=== PATIENT | female | born 1995 | race African-American/Black ===

== ENCOUNTER → 2018-05-09 07:25 | Day surgery (SDC) | payer MEDICAID ==
[2018-05-08 12:11] LABS: BASOPHILS 0.6 % (0-2); EOSINOPHILS 3.9 % (0-7); HEMATOCRIT 35.9 % (36.0-48.0); HEMOGLOBIN 12.1 g/dL (12-16); IMMATURE GRANULOCYTES 0.1 % (0-5); LYMPHOCYTES 30.6 % (15-50); MCH 29.1 pg (26.0-34.0); MCHC 33.7 g/dL (31.0-37.0); MCV 86.3 fL (80.0-100.0); MEAN PLATELET VOLUME 9.9 fL (7.4-10.4); NEUTROPHILS 57.8 % (40-80); PLATELET COUNT 304 10x3/uL (130-400); RBC 4.16 10x6/uL (4.00-5.40); RDW 13.2 % (11.5-14.5); WBC 7.2 10x3/uL (4.8-10.8)
[~2018-05-09] VITALS: Ht 160 cm; Wt 88.5 kg
[~2018-05-09 07:25] MED LIST: ADIPEX-P37.5 M1 PO; DOXEPIN HCL75 MG PO; REMERON15 MG PO; VALIUM5 MG PO; XANAX XR 1 MG TA1 MG PO; XANAX1 MG PO; ZOLOFT100 MG PO
[2018-05-09 08:19] VITALS: BP 118/70; Ht 160 cm; Wt 88.5 kg
[2018-05-09 08:40] LABS: HCG URINE NEGATIVE (NEGATIVE)
== END | disposition home or self-care (01) ==
LOC: D.OPS 07:25 → D.PAN 08:00 → D.OPS 08:00
PROVIDERS: Obstetrics & Gynecology
DX: R10.2 Pelvic and perineal pain (principal)

== ENCOUNTER 2018-07-23 09:20 | Day surgery (SDC) | payer MEDICAID ==
[2018-07-20 10:05] LABS: BASOPHILS 0.6 % (0-2); EOSINOPHILS 2.7 % (0-7); HEMATOCRIT 37.9 % (36.0-48.0); HEMOGLOBIN 12.3 g/dL (12-16); IMMATURE GRANULOCYTES 0.2 % (0-5); MCH 28.1 pg (26.0-34.0); MCHC 32.5 g/dL (31.0-37.0); MCV 86.5 fL (80.0-100.0); MONOCYTES 7.9 % (2-11); NEUTROPHILS 56.6 % (40-80); RBC 4.38 10x6/uL (4.00-5.40); RDW 13.4 % (11.5-14.5); WBC 6.6 10x3/uL (4.8-10.8)
[2018-07-20 10:08] LABS: PLATELET COUNT 370 10x3/uL (130-400)
[~2018-07-23] VITALS: Ht 160 cm; Wt 93.0 kg
--- NOTE | ~2018-07-23 | OP ---
PATIENT NAME: DEMARCUS SR MEDICAL RECORD: [id number] :93 LOCATION:D.OPS ADMISSION DATE: SURGEON: TATE THOMAS MD DATE OF OPERATION: 07/23/2018 PREOPERATIVE DIAGNOSES: 1. Pelvic pain. 2. Nocturia. POSTOPERATIVE DIAGNOSIS: Endometriosis. PROCEDURES: 1. Diagnostic laparoscopy. 2. Fulguration of endometriosis. 3. Cystoscopy with hydrodistention. SURGEON: Tate Thomas MD FATBACK TRIMMER: Amarjit Erazo ANESTHESIOLOGIST: Dr. Rocha ANESTHETIC: General. FINDINGS: Uterus is slightly boggy. There is active endometriosis in the cul-de-sac and on the posterior wall or posterior body of the uterus. Both tubes and ovaries are unremarkable. What was visualized of the abdominal anatomy was unremarkable. At the time of cystoscopy, the bladder mucosa is unremarkable before and after hydrodistention SPECIMENS REMOVED: None. SPECIMEN DISPOSITION: Not applicable. ESTIMATED BLOOD LOSS: 50 mL. FLUIDS: 1 liter lactated Ringer's. URINE OUTPUT: Quantity sufficient void prior to this procedure. COMPLICATIONS: None. DRAINS: None. INDICATIONS: The patient is a 23-year-old female with pelvic pain and dyspareunia. The patient also reports occasional nocturia and being treated for bladder infections without positive culture. The patient is consented for diagnostic laparoscopy and any indicated procedure and cystoscopy with hydrodistention. DESCRIPTION OF PROCEDURE: After informed consent was assured, the patient was taken to the operating room where anesthetic was obtained without difficulty. The patient is now prepped and draped in the usual sterile fashion. The patient has an incision made at the umbilicus to accommodate 5 mm trocar and OPERATIVE REPORT [id number] DEMARCUS SR it was inserted without difficulty and pneumoperitoneum developed. The patient was placed in Trendelenburg position and 5 mm ports placed 2 fingerbreadths above the symphysis. Through this, a blunt probe was inserted and bowel was swept free of the pelvis. The posterior aspect of the uterus and the cul-de-sac inspected and found to have active endometriosis. Accessory ports now placed in the right lower quadrant and with a grasper in the midline level elevating the uterus, the Bovie cautery with a hook at a 20-watt setting was used to desiccate all active endometriosis implants along the back wall of the uterus and in the cul-de-sac. After this had been completed, trocars were removed after the pneumoperitoneum was released. All sites were reapproximated with a subcuticular stitch and sterile dressing applied. The patient is now positioned for a cystoscopy. A 70-degree cystoscope was inserted under direct visualization and the bladder distended at 80 cm of water. After this has been performed, the effluent was removed. No blood was seen contained within with the use of distention media. Re-establishment of the cystoscopy reveals no petechiae or trabeculations throughout the bladder. Ureteral orifices were identified with good efflux of urine. The bladder was now drained and then the patient was taken down from [facility] and went to the recovery area in stable condition. TRANSINT:[id number] Voice Confirmation ID: [id number] DOCUMENT ID: [id number] TATE THOMAS MD at 1610 CC: [id number] DICTATION DATE: 07/23/18 1445 END MAKER: 07/23/18 2309 [facility] 07/23/18 [id number] [place] [address]
[2018-07-23 10:56] LABS: HCG URINE NEGATIVE (NEGATIVE)
[2018-07-23 11:04] VITALS: BP 127/70; Ht 160 cm; Wt 93.0 kg
== END 2018-07-23 17:20 | disposition home or self-care (01) ==
LOC: D.OPS 09:20
PROVIDERS: Obstetrics & Gynecology
DX: N80.0 Endometriosis of uterus (principal); R53.1 Weakness